=== PATIENT | female | born 1970 | race Caucasian/White ===

== ENCOUNTER 2022-07-10 17:05 | Emergency (ER) | payer OTHER ==
[~2022-07-10] VITALS: Ht 177.8 cm; Wt 107.5 kg
--- OUTSIDE RECORDS SUMMARY | 2022-07-10 17:06 | XMS ---
PreManage Notification: [facility] Security Facility Attendant Events No recent Security Events currently on file [facility] There are no care providers on record at this time. Edward has no Care Guidelines for this patient. Andrew VISIT COUNT (12 MO.) 1 SANTIAGO Bartholomew TOTAL 1 NOTE: Visits indicate total known visits. ED/C VISIT TRACKING (12 MO.) 07/10/2022 17:05 SANT[facility]AGO [facility] TYPE: Emergency COMPLAINT: - LT LEG PAIN INPATIENT VISIT TRACKING (12 MO.) No inpatient visits to display in this time frame [email or web address]
[2022-07-10] MEDS ORDERED: GRALISE300 MG PO (19:35)
[2022-07-10] MEDS ORDERED: METHYLPREDNISOLO4 M1 PO (19:35)
[2022-07-10] MEDS ORDERED: HYDROCODON-ACE1 EA11 PO (19:35)
== END 2022-07-10 19:48 | disposition home or self-care (01) ==
LOC: ED 17:05
DX: M54.42 Lumbago with sciatica, left side (principal); Z88.8 Allergy status to other drugs, medicaments and biological substances
CPT/HCPCS: 96372; 99283; A9270; J1885; J7512